=== PATIENT | female | born 2000 ===

== ENCOUNTER 2023-01-28 09:12 | Outpatient (CLI) | payer OTHER | END 2023-01-28 11:39 | disposition home or self-care (01) | LOC: PRENATAL 09:12 | PROVIDERS: ATTEND Obstetrics & Gynecology Maternal & Fetal Medicine | DX: O35.9XX0 Maternal care for (suspected) fetal abnormality and damage, unspecified, not applicable or unspecified (principal); O34.219 Maternal care for unspecified type scar from previous cesarean delivery; Z3A.23 23 weeks gestation of pregnancy ==